=== PATIENT | male | born 1980 | race Caucasian/White ===

== ENCOUNTER 2023-10-14 00:56 | Emergency (ER) | payer BC, SELFPAY ==
[2023-10-14 01:19] VITALS: BP 132/85; PULSE 111; RESP 18; TEMP 37.2; O2SAT 93; BMI 22.0
--- NOTE | 2023-10-14 03:37 | PC.NURSE ---
patient self presents lives w sister who brought him to ED post a cruise last week patient had some exposure last tuesday used crystal meth with friend in [facility] and experiencing paranoia, pressured feeling, woozy but no n/v, ?vertigo. states feels sense of 'impending doom but contracts for safety. takes lexapro and truvada (as prep) [facility]
[2023-10-14 03:58] VITALS: BP 145/95; PULSE 94; RESP 18; TEMP 36.9; O2SAT 97
[2023-10-14 04:03] LABS: MANUAL DIFF FLAG NO
[2023-10-14 04:04] LABS: Basophils Percent Auto 0.2 % (0-2); Eosinophils Absolute Auto 0.1 X10*3/uL (0.0-0.4); Eosinophils Percent Auto 0.8 % (0-4); Hematocrit 40.7 % (42.0-52.0); Hemoglobin 13.6 g/dl (14.0-18.0); Imm Gran Abs Auto 0.02 X10*3/uL (0.00-0.03); Imm Gran Pct Auto 0.2 % (0.0-0.4); Lymphocytes Absolute Auto 2.3 X10*3/uL (1.2-4.9); Lymphocytes Percent Auto 26.8 % (20-40); Mean Corpuscular HGB Conc 33.4 g/dl (31.0-36.0); Mean Corpuscular Hemoglobin 26.8 pg (27.0-33.0); Mean Corpuscular Volume 80.1 fL (80.0-98.0); Monocytes Absolute Auto 0.7 X10*3/uL (0.1-1.2); Monocytes Percent Auto 8.2 % (2-11); Neutrophils Absolute Auto 5.4 x10*3/uL (2.0-8.3); Neutrophils Percent Auto 63.8 % (45-73); Platelet Count 194 X10*3/uL (160-400); Red Blood Count 5.08 X10*6/uL (4.60-5.80); Red Cell Distribution Width 12.8 % (11.0-16.0); White Blood Count 8.5 X10*3/uL (4.8-10.8)
[2023-10-14 04:22] LABS: Alanine Aminotransferase 29 U/L (0-40); Albumin Level 4.6 g/dL (3.5-5.0); Alkaline Phosphatase 80 U/L (39-117); Anion Gap 20 (12-20); Aspartate Amino Transferase 76 U/L (5-37); Bilirubin Total 0.8 mg/dL (0.0-1.0); Blood Urea Nitrogen 23 mg/dL (9-16); Calcium 9.7 mg/dL (8.4-10.2); Carbon Dioxide 22 mmol/L (22-29); Chloride 101 mmol/L (96-108); Creatinine Clr Calc Pharmacy 62.3; Estimated Glomerular Filt Rate 50; Ethanol < 10 mg/dL; Glucose Random 99 mg/dL (60-115); Potassium 3.1 mmol/L (3.3-5.1); Sodium 140 mmol/L (135-145); Total Protein 7.7 g/dL (6.5-8.0)
[2023-10-14 04:25] LABS: Acetaminophen LAB < 3 mcg/mL (<30); Salicylate < 5.0 mg/dL (15-30)
--- NOTE | 2023-10-14 04:58 | ED.PSYCH ---
HPI - Psych General Chief Complaint: ETOH/Substance Use Stated Complaint: drug induced psychosis ? Time Seen by Provider: 10/14/23 04:58 Source: patient Mode of arrival: EMS Limitations: no limitations History of Present Illness HPI Narrative: Patient has been using meth amphetamine last use was 6 days ago been having paranoia of people following him did not any SI or HI denies any significant depression having racing thoughts no history of schizophrenia patient never had similar symptoms in the past Related Data Allergies Allergy/AdvReac Type Severity Reaction Status Date / Time environmental allergies Allergy Itchy Eyes Verified 10/14/23 01:18 Review of Systems Review of Systems: Yes all other systems are reviewed and are negative Physical Exam Vital Signs: Vital Signs: Last Vital Signs Temp 98.4 F 10/14/23 03:58 Pulse 94 10/14/23 03:58 Resp 18 10/14/23 03:58 BP 145/95 H 10/14/23 03:58 Pulse Ox 97 10/14/23 03:58 O2 Del Method Room Air 10/14/23 03:58 BMI result Body Mass Index 22.0 Appearance: Alert. Oriented X3. No acute distress. Eyes: PERRLA, No Nystagmus ENT: Pharynx normal. Oral Mucosa moist Neck: Normal inspection. Neck supple. CVS: Normal heart rate and rhythm. Pulses normal. Respiratory: No respiratory distress. Equal air entry bilateral, no wheezing/rales/rhonchi Abdomen: Soft and nontender. Bowel sounds are present, no mass palpable, no CVA tenderness Skin: Skin warm and dry. Normal skin color. Normal skin turgor. Extremities: No lower extremity edema. No calf tenderness psych: Anxious no SI or HI no hallucinations at this time Neuro: Oriented X 3. No motor deficit. No sensory deficit.No cerebellar signs , cranial nerves II-XII intact Medications Administered Discontinued Medications Generic Name Dose Route Start Last Admin Trade Name Freq PRN Reason Stop Dose Admin Potassium Bicarbonate 25 meq 10/14/23 05:11 10/14/23 05:37 Potassium Bicarbonate/Cit Ac 25 Meq Tablet.Eff PO 10/14/23 05:12 25 meq ONCE ONE Administration Medical Decision Making Medical Decision Making [facility] Narrative: Patient with acute paranoia with use of methamphetamine etiology is not very cure possible from the drug use will get care team for further evaluation as patient never had similar symptoms in the past Differential Diagnosis Differential Diagnoses: The differential diagnosis associated with the presentation includes Polysubstance abuse/paranoid Lab Data MDM Lab Attestation statement: I reviewed the patient's lab results. 10/14/23 03:55 10/14/23 03:55 Labs: Lab Results 10/14/23 Range/Units 03:55 WBC 8.5 (4.8-10.8) X10*3/uL RBC 5.08 (4.60-5.80) X10*6/uL Hgb 13.6 L (14.0-18.0) g/dl Hct 40.7 L (42.0-52.0) % MCV 80.1 (80.0-98.0) fL MCH 26.8 L (27.0-33.0) pg MCHC 33.4 (31.0-36.0) g/dl RDW 12.8 (11.0-16.0) % Plt Count 194 (160-400) X10*3/uL MPV 10.0 (9.4-12.4) fL Immature Gran % (Auto) 0.2 (0.0-0.4) % Neut % (Auto) 63.8 (45-73) % Lymph % (Auto) 26.8 (20-40) % Dixie % (Auto) 8.2 (2-11) % Eos % (Auto) 0.8 (0-4) % Baso % (Auto) 0.2 (0-2) % Lymph # (Auto) 2.3 (1.2-4.9) X10*3/uL Dixie # (Auto) 0.7 (0.1-1.2) X10*3/uL Eos # (Auto) 0.1 (0.0-0.4) X10*3/uL Baso # (Auto) 0.0 (0.0-0.2) X10*3/uL Abs Immat Gran (auto) 0.02 (0.00-0.03) X10*3/uL Absolute Neuts (auto) 5.4 (2.0-8.3) x10*3/uL Absolute Nucleated RBC 0.000 (0.0-0.012) X10*3/uL Nucleated RBC % (auto) 0.0 (0.0-0.2) /100WBC Sodium 140 (135-145) mmol/L Potassium 3.1 L (3.3-5.1) mmol/L Chloride 101 (96-108) mmol/L Carbon Dioxide 22 (22-29) mmol/L Anion Gap 20 (12-20) BUN 23 H (9-16) mg/dL Creatinine 1.53 H (0.5-1.4) mg/dL Estim Creat Clear Calc 62.3 Estimated GFR 50 Random Glucose 99 (60-115) mg/dL Calcium 9.7 (8.4-10.2) mg/dL Total Bilirubin 0.8 (0.0-1.0) mg/dL AST 76 H (5-37) U/L ALT 29 (0-40) U/L Alkaline Phosphatase 80 (39-117) U/L Total Protein 7.7 (6.5-8.0) g/dL Albumin 4.6 (3.5-5.0) g/dL Salicylates < 5.0 L (15-30) mg/dL Acetaminophen < 3 (<30) mcg/mL Ethyl Alcohol < 10 mg/dL Discharge Plan Discharge Clinical Impression: Paranoia, Amphetamine use Patient Disposition: Still a Patient
[2023-10-14] MEDS: Potassium Bicarbonate/Cit AC 25 MEQ TABLET.EFF PO (05:37)
--- NOTE | 2023-10-14 06:15 | MHC.EDTECH ---
Multiple attempts made to collect urine sample from pt without success. Pt states that he is unable to go at this time. Pt given more water at this time. RN aware
[2023-10-14 07:08] LABS: Appearance Urine Clear; Color Urine Yellow; Glucose Urine UA Negative (Negative); Leukocyte Esterase Urine Negative (Negative); Nitrite Urine Negative (Negative); UMIC TRIGGER UACC YES; Urine Blood Negative (Negative); Urine Ketones 15 mg/dL (Negative); Urine Protein 30 (1+) mg/dL (Neg-Trace)
[2023-10-14 07:13] LABS: Amphetamine Screen Urine POSITIVE (Not Detect); Barbiturates, Urine Not Detected (Not Detect); Benzodiazepines Screen Urine Not Detected (Not Detect); Cannabinoid Screen Urine POSITIVE (Not Detect); Cocaine Screen Urine Not Detected (Not Detect); Fentanyl, urine Not Detected (Not Detect); Opiate Screen Urine Not Detected (Not Detect); Phencyclidine Screen Urine Not Detected (Not Detect)
[2023-10-14 07:19] LABS: Bacteria Urine None Seen (None Seen); Granular Casts Urine Present; RBC Urine 0-2 /HPF (0-2); Squamous Epithelial Cell Urine 0-2 /HPF (0-2); WBC Urine 0-5 /HPF (0-5)
[2023-10-14 07:45] VITALS: BP 105/85; PULSE 100; RESP 20; TEMP 37.3; O2SAT 94
--- NOTE | 2023-10-14 07:45 | PC.NURSE ---
PT IS A/O X 3 NO SOB/CHRIS NOTED SPEAKS IN FULL SENTENCES. PT DENIES ANY PAIN/DISC. PT IS CALM/CO-OP. PT DENIES ANY SI/HI. PT AMB (I) GAIT STEADY TO BATHROOM. PT AWARE OF PLAN OF CARE. WILL CONTINUE TO MONITOR.
[2023-10-14 08:16] LABS: Anion Gap 16 (12-20); Blood Urea Nitrogen 22 mg/dL (9-16); Calcium 9.6 mg/dL (8.4-10.2); Carbon Dioxide 22 mmol/L (22-29); Chloride 99 mmol/L (96-108); Creatinine Clr Calc Pharmacy 92.6; Estimated Glomerular Filt Rate > 60; Glucose Random 93 mg/dL (60-115); Potassium 3.3 mmol/L (3.3-5.1); Sodium 134 mmol/L (135-145)
[2023-10-14 08:23] LABS: COVID-19 Test Negative (Negative); IDNOW Serial# 58CA691E
--- NOTE | 2023-10-14 08:46 | PC.NURSE ---
CARE TEAM (NOLAN) AT BEDSIDE. PT AWARE OF PLAN OF CARE.
[2023-10-14 12:01] VITALS: BP 130/78; PULSE 87; RESP 16; TEMP 37.4; O2SAT 97
--- NOTE | 2023-10-14 12:52 | PC.NURSE ---
PT SEEN BY DAVE YEN) PT AWARE OF PLAN OF CARE.
--- NOTE | 2023-10-14 13:13 | PC.NURSE ---
PT'S SISTER AND ATTENDING MD AT BEDSIDE. PT AWARE OF PLAN OF CARE.
[2023-10-14] MEDS: Escitalopram Oxalate 20 MG TABLET PO (13:17)
--- NOTE | 2023-10-14 13:29 | MHC.CARE ---
Dr. Guzman met with Pt and sister. Pt continues to be psychiatry cleared by the CARE Team and does not require a re-evaluation however; Pt will board in the ED overnight to ensure symptoms have fully resolved from methamphetamine usage.
--- NOTE | 2023-10-14 14:59 | PC.NURSE ---
PT'S SISTER HAS LEFT THE POD.
--- NOTE | 2023-10-14 17:28 | PC.NURSE ---
resting quietly. in room. chest rise noted. NAD.
--- NOTE | 2023-10-14 20:03 | PHA.MEDREC ---
Pharmacy Consult ? Medication Reconciliation Pharmacy has reviewed the medication reconciliation completed by
[2023-10-14 22:39] VITALS: BP 115/80; PULSE 104; RESP 20; TEMP 36.4; O2SAT 95
[2023-10-15 06:27] VITALS: BP 108/73; PULSE 72; RESP 16; TEMP 36.4; O2SAT 98
[2023-10-15] MEDS: Escitalopram Oxalate 20 MG TABLET PO (08:01)
== END 2023-10-15 09:04 | disposition still patient (30) ==
PROVIDERS: Emergency Medicine; Internal Medicine; Emergency Provider Emergency Medicine
DX: F60.0 Paranoid personality disorder (principal); F15.90 Other stimulant use, unspecified, uncomplicated; Z11.52 Encounter for screening for COVID-19
CPT/HCPCS: 36415; 80048; 80053; 80143; 80179; 80307; 81001; 85025; 87635; 99284; 99285; S9485